=== PATIENT | male | born 1960 | race African-American/Black ===

== ENCOUNTER 2021-07-19 09:35 | Day surgery (SDC) | payer OTHER ==
[~2021-07-19] VITALS: Ht 172.7 cm; Wt 84.5 kg
[2021-07-19 11:26] VITALS: BP 159/92; PULSE 64; TEMP 98.4
[2021-07-19] MEDS ORDERED: INDOCIN50 MG PO (11:31)
[2021-07-19] MEDS ORDERED: GLUCOPHAGE XR500 M1 PO (11:31)
[2021-07-19] MEDS ORDERED: LIPITOR 10MG10 MG PO (11:32)
[2021-07-19] MEDS ORDERED: PRINIVIL10 MG PO (11:32)
[2021-07-19] MEDS ORDERED: JARDIANCE10 PO (11:33)
[2021-07-19] MEDS ORDERED: PYRIDIUM 100MG100 MG PO (14:04)
[2021-07-19 14:35] VITALS: BP 140/77; PULSE 69; TEMP 98.3
[2021-07-19 14:45] VITALS: BP 144/84; PULSE 71
[2021-07-19 14:55] VITALS: PULSE 71
--- NOTE | 2021-07-19 15:20 | NUR ---
Pt returned via cart to [facility] at 1433. A&O. Voided prior to return. Pt also tolerated ice chips prior to return. VS remain stable. Pt voiced ready to get dressed. Pts friend, Christopher waiting at front entrance for pt to dc. IV removed, pressure dressing applied. Pt tolerated coffee and a muffin. Discharge teaching completed, pt verbalized understanding. Dressed independently. Taken via wheelchair to Christopher's vehicle for dc home with Christopher driving. Pt left with all personal belongings and dc teaching/instruction packet.
== END 2021-07-19 15:20 | disposition home or self-care (01) ==
LOC: SDCO 09:35
DX: N20.1 Calculus of ureter (principal); R35.0 Frequency of micturition; N50.89 Other specified disorders of the male genital organs
CPT/HCPCS: C1769; J0690; J1100; J2405; J3010; J7120; Q9967